=== PATIENT | male | born 1975 | race Caucasian/White ===

== ENCOUNTER 2018-01-04 23:58 | Emergency (ER) | payer BC ==
[~2018-01-04] VITALS: Ht 188 cm; Wt 115.7 kg
--- NOTE | ~2018-01-04 | EKG ---
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 : 1975 Requested By: Julisa Schultz Order Number: [id number] MD: Artie Michael Measurements Intervals [place] Rate: 96 P: 30 [place]: 148 QRS: 25 QRSD: 93 T: 19 QT: 319 QTc: 404 Interpretive Statements Sinus rhythm ST elev, probable normal early repol pattern Compared to ECG 07/27/1994 09:22:00 ST (T wave) deviation now present No significant change was found Electronically Signed On 01-05-2018 10:34:54 CDT by Artie Michael [email or web address] <ELECTRONICALLY SIGNED> By: Artie Michael MD, [facility] 01/05/18 1034 0022 0022 Artie Michael MD, [facility] /EPI
[2018-01-05 00:35] LABS: ABSOLUTE NEUTROPHILS 4.2 thou/uL (1.4-8.2); BASOPHILS 0.5 % (0.0-2.0); EOSINOPHILS 4.9 % (0.0-3.0); HEMATOCRIT 47.4 % (42.0-52.0); HEMOGLOBIN 16.4 gm/dL (14.0-18.0); LYMPHOCYTES 40.8 % (24.0-44.0); MCH 32.4 pg (26.0-34.0); MCHC 34.7 g/dL (28.0-37.0); MCV 93.3 fL (80.0-100.0); MONOCYTES 7.9 % (1.0-8.0); PLATELET COUNT 240 thou/uL (150-400); POLYS 45.9 % (36.0-66.0); RBC 5.08 mil/uL (4.50-6.00); RDW 13.1 % (10.5-14.5); WBC 9.2 thou/uL (4.0-11.0)
[2018-01-05 00:42] LABS: CALCIUM 8.7 mg/dL (8.5-10.1); CREATININE 0.9 mg/dL (0.7-1.3); POTASSIUM 3.8 mmol/L (3.5-5.1)
[2018-01-05 02:19] LABS: AMP/METHAMP Negative (Negative); BARBITURATES Negative (Negative); BENZODIAZEPINES Negative (Negative); COCAINE Negative (Negative); METHADONE Negative (Negative); OPIATES Negative (Negative); PCP Negative (Negative)
[2018-01-05 03:12] VITALS: BP 111/73
== END 2018-01-05 03:22 | disposition home or self-care (01) ==
LOC: ER 23:58
PROVIDERS: Emergency Medicine
DX: R20.2 Paresthesia of skin (principal)